=== PATIENT | male | born 1965 | race American Indian/Alaskan Native ===

== ENCOUNTER → 2018-06-28 | Day surgery (SDC) | payer OTHER ==
[~2018-06-28] MED LIST: Midazolam 1 MG/ML 2 ML SDV IV ONE; Midazolam 1 MG/ML 2 ML SDV ONE; Sodium Chloride 0.9% 10 ML Syringe FLUSH PRN; fentaNYL 100 MCG/2 ML SDV IV ONE; fentaNYL 100 MCG/2 ML SDV ONE
[2018-06-28] MEDS: fentaNYL 100 MCG/2 ML SDV IV ONE ×2 (06:30→06:31)
[2018-06-28] MEDS: Midazolam 1 MG/ML 2 ML SDV IV ONE ×3 (06:31→06:34)
[2018-06-28] MEDS: Dextrose 5%-0.45% NaCl 1,000 ML IV SCH (07:00)
[2018-06-28 09:51] VITALS: BP 104/69
--- NOTE | 2018-06-28 11:29 | OR ---
DATE: 06/28/2018 PROCEDURE PERFORMED: Total colonoscopy. INSTRUMENT USED: [id number] Olympus video colonoscope. PREMEDICATIONS: Fentanyl 100 mcg intravenous, Versed 2.5 mg intravenous. Nasal O2 cannula. The procedure was done under pulse oximetry, BP recording, and mattress filler. INDICATION: Screening colonoscopic examination is done for detection of any polypoid lesions and removal, endoscopic hemostasis therapy if needed. DESCRIPTION OF PROCEDURE: Initial rectal exam was unremarkable. Rigid anoscopy was normal. The colonoscope was passed with ease up to the ileocecal area. Photographs were taken of the normal-appearing cecum, identified by landmarks of appendiceal orifice and double-bulged ileocecal folds. No bleeding was noted from any of the visualized areas at the commencement of the examination. The bowel preparation was found to be adequate, [place] scale 3. No stricture. No vascular ectasia. No large isolated ulcerations seen. No evidence of diffuse inflammatory bowel disease in the form of friability, contact bleeding, or ulcerations. No polyp or tumor mass identified. Probing the proximal sides of folds and flexures using adequate distention and clearing up the stool material and withdrawal of the scope was made, cecum to rectum time, over 6 minutes. No bleeding was noted from any of the visualized areas at the completion of examination. IMPRESSION: Normal study. The patient tolerated the procedure well. [facility] /[id number]
--- NOTE | 2018-06-28 13:29 | LETTER ---
06/28/2018 Temitope Treviño MD [facility] [address] [place] [address] RE: AJAY NAVARRETE : [address] Treviño: Mr. Ajay Navarrete had colonoscopic examination done this morning and he tolerated the procedure well. I herewith send a copy of the endoscopy note and photographs for your review. Thank you. Sincerely, [facility] /[id number]
== END ==
LOC: DL.ENDO 05:24
PROVIDERS: ATTEND Internal Medicine Gastroenterology
DX: Z12.11 Encounter for screening for malignant neoplasm of colon (principal); I10 Essential (primary) hypertension; E11.9 Type 2 diabetes mellitus without complications; E78.5 Hyperlipidemia, unspecified; K21.9 Gastro-esophageal reflux disease without esophagitis; E66.09 Other obesity due to excess calories; Z68.37 Body mass index [BMI] 37.0-37.9, adult; Z88.0 Allergy status to penicillin; Z79.82 Long term (current) use of aspirin
CPT/HCPCS: J2250; J3010; J7042

== ENCOUNTER 2019-05-14 05:34 | Day surgery (SDC) | payer OTHER ==
[2019-05-14] MEDS ORDERED: fentaNYL 100 MCG/2 ML SDV IV ONE (05:35)
[2019-05-14] MEDS ORDERED: Midazolam 1 MG/ML 2 ML SDV IV ONE (05:35)
[2019-05-14] MEDS: Dextrose 5%-0.45% NaCl 1,000 ML IV SCH (05:56)
[2019-05-14] MEDS ORDERED: Sodium Chloride 0.9% 10 ML Syringe FLUSH PRN (06:00)
[2019-05-14] MEDS ORDERED: Midazolam 1 MG/ML 2 ML SDV ONE (06:12)
[2019-05-14] MEDS ORDERED: fentaNYL 100 MCG/2 ML SDV ONE (06:13)
[2019-05-14] MEDS: fentaNYL 100 MCG/2 ML SDV IV ONE ×2 (06:34→06:35)
[2019-05-14] MEDS: Midazolam 1 MG/ML 2 ML SDV IV ONE ×2 (06:35→06:36)
--- NOTE | 2019-05-14 07:41 | OR ---
DATE: 05/14/2019 PROCEDURE: Esophagogastroduodenoscopy and multiple pinch biopsies. INSTRUMENT USED: GIF-HQ190 Olympus video panendoscope. PREMEDICATIONS: No oral or topical anesthesia used. Fentanyl 100 mcg intravenous, Versed 2 mg intravenous. The procedure was done under pulse oximetry, BP recording, and shelter monitor. INDICATION: Diabetic patient on multiple medications with longstanding difficulties of heartburn and regurgitation, and dependent on PPI. Esophagogastroduodenoscopy is performed for detection of any active erosive lesions, Sahu esophagus and/or malignancy also under consideration, H. pylori status to be determined, endoscopic hemostasis therapy if needed. DESCRIPTION OF PROCEDURE: The scope was passed with ease. Adequate visualization of the esophagus was made from proximal to distal areas. No upper esophageal lesions identified. No distal esophageal stricture. No uphill or downhill esophageal varices. No Lisha-Brooks tear. No evidence of erosive esophagitis by [place] criteria. No esophageal polyp or tumor mass identified. Z-line was seen at around 39 cm distal to the oral verge, configuration consistent with grade 1 by ZAP classification. No proximal gastric varices noted. Gastric fundus examination by retroflexion showed no polypoid lesions. There was large amount of food material especially in the proximal stomach limiting visualization of few areas. No gastric ulcer, malignant mass, or vascular ectasia identified. Duodenal bulb showed no ulcer. Visualized second part of the duodenum was unremarkable. Multiple pinch biopsies were taken from the gastric antrum and proximal body and sent for PyloriTek test for H. pylori, and if negative in an hour, tissues to be sent for histopathology. No bleeding was noted from any of the visualized areas at the completion of the examination. Photographs were taken of the duodenal bulb, gastric antrum, fundus, and distal esophagus. IMPRESSION: Gastroparesis diabeticorum. The patient tolerated the procedure well. [facility] /[id number]
[2019-05-14 08:37] VITALS: PULSE 71
[2019-05-14 08:49] VITALS: BP 108/66
--- NOTE | 2019-05-14 13:57 | LETTER ---
05/14/2019 Temitope Treviño MD [facility] [address] [place] [address] RE: AJAY NAVARRETE : [address] Treviño: Mr. Ajay Navarrete had esophagogastroduodenoscopy done this morning and he tolerated the procedure well. I herewith send a copy of the endoscopy note and photographs for your review. Thank you. Sincerely, [facility] /[id number]
== END 2019-05-14 08:50 | disposition home or self-care (01) ==
LOC: DL.ENDO 05:34
PROVIDERS: ATTEND Internal Medicine Gastroenterology
DX: E11.43 Type 2 diabetes mellitus with diabetic autonomic (poly)neuropathy (principal); K31.84 Gastroparesis; B96.81 Helicobacter pylori [H. pylori] as the cause of diseases classified elsewhere; Z79.899 Other long term (current) drug therapy
CPT/HCPCS: 43239; 87077; J2250; J3010; J7042

== ENCOUNTER 2019-08-09 05:24 | Day surgery (SDC) | payer OTHER ==
[2019-08-09] MEDS ORDERED: fentaNYL 100 MCG/2 ML SDV IV ONE ×3 (05:25→06:27)
[2019-08-09] MEDS ORDERED: Midazolam 1 MG/ML 2 ML SDV IV ONE ×3 (05:25→06:28)
[2019-08-09] MEDS ORDERED: Dextrose 5%-0.45% NaCl 1,000 ML IV SCH (05:45)
[2019-08-09] MEDS ORDERED: Midazolam 1 MG/ML 2 ML SDV ONE (06:02)
[2019-08-09] MEDS ORDERED: fentaNYL 100 MCG/2 ML SDV ONE (06:02)
--- NOTE | 2019-08-09 07:33 | OR ---
DATE: 08/09/2019 PROCEDURE: Esophagogastroduodenoscopy. INSTRUMENT USED: GIF-HQ190 Olympus video panendoscope. PREMEDICATIONS: No oral or topical anesthesia used. Fentanyl 100 mcg intravenous, Versed 2 mg intravenous, nasal O2 cannula. The procedure was done under pulse oximetry, BP recording, and mouthpiece maker. INDICATION: The patient with longstanding difficulties of heartburn and diabetic on PPI with recent Hemoccult-positive stools. Previous inadequate study due to the presence of large amount of solid food in the stomach. Esophagogastroduodenoscopy is performed for detection of any active erosive lesions, malignancy also under consideration, endoscopic hemostasis therapy if needed. DESCRIPTION OF PROCEDURE: The scope was passed with ease. Adequate visualization of the esophagus was made from proximal to distal areas. No upper esophageal lesions identified. No distal esophageal stricture. No uphill or downhill esophageal varices. No Lisha-Brooks tear. No evidence of erosive esophagitis by [place] criteria. No esophageal polyp or tumor mass identified. Z-line was seen at around 40 cm distal to the oral verge, configuration consistent with grade 1 by ZAP classification. No proximal gastric varices noted. Gastric fundus examination by retroflexion showed no polypoid lesions. No gastric ulcer, malignant mass, or vascular ectasia identified. Duodenal bulb showed no ulcer. Visualized second part of the duodenum was unremarkable. No bleeding was noted from any of the visualized areas at the completion of examination. Photographs were taken of the duodenal bulb, gastric antrum, fundus, and distal esophagus. IMPRESSION: Normal study. The patient tolerated the procedure well. [facility] /[id number]
[2019-08-09 09:05] VITALS: PULSE 61
[2019-08-09 09:06] VITALS: BP 101/55
--- NOTE | 2019-08-09 10:30 | LETTER ---
08/09/2019 Constance De La Rosa NP [facility] [address] [place] [address] RE: AJAY NAVARRETE : Dear Ms. De La Rosa: Mr. Ajay Navarrete had esophagogastroduodenoscopy done this morning and he tolerated the procedure well. I herewith send a copy of the endoscopy note and photographs for your review. Thank you. Sincerely, [facility] /[id number]
== END 2019-08-09 08:39 | disposition home or self-care (01) ==
LOC: DL.ENDO 05:24
PROVIDERS: ATTEND Internal Medicine Gastroenterology
DX: R12 Heartburn (principal); R19.5 Other fecal abnormalities; E11.9 Type 2 diabetes mellitus without complications; E66.09 Other obesity due to excess calories; I10 Essential (primary) hypertension; E78.5 Hyperlipidemia, unspecified; K21.9 Gastro-esophageal reflux disease without esophagitis; Z88.0 Allergy status to penicillin; Z86.69 Personal history of other diseases of the nervous system and sense organs; Z86.19 Personal history of other infectious and parasitic diseases; Z79.899 Other long term (current) drug therapy; Z68.34 Body mass index [BMI] 34.0-34.9, adult
CPT/HCPCS: 43235; J2250; J3010; J7042

== ENCOUNTER 2019-08-13 05:22 | Day surgery (SDC) | payer OTHER ==
[2019-08-13] MEDS ORDERED: Midazolam 1 MG/ML 2 ML SDV IV ONE ×6 (05:23→06:41)
[2019-08-13] MEDS ORDERED: fentaNYL 100 MCG/2 ML SDV IV ONE ×3 (05:23→06:31)
[2019-08-13] MEDS: Dextrose 5%-0.45% NaCl 1,000 ML IV SCH ×2 (05:57→08:15)
[2019-08-13] MEDS ORDERED: Sodium Chloride 0.9% 10 ML Syringe FLUSH PRN (06:00)
[2019-08-13] MEDS ORDERED: Midazolam 1 MG/ML 2 ML SDV ONE (06:12)
[2019-08-13] MEDS ORDERED: fentaNYL 100 MCG/2 ML SDV ONE (06:12)
--- NOTE | 2019-08-13 08:13 | OR ---
DATE: 08/13/2019 PROCEDURE: Total colonoscopy. INSTRUMENT USED: [id number]-H190DL Olympus video colonoscope. PREMEDICATIONS: Fentanyl 100 mcg intravenous, Versed 3.5 mg intravenous, nasal O2 cannula. The procedure was done under pulse oximetry, BP recording, and monitoring manager. INDICATION: The patient with rectal bleeding and Hemoccult-positive stools. Colonoscopic examination is done for detection of any polypoid lesions and removal, endoscopic hemostasis therapy if needed. DESCRIPTION OF PROCEDURE: Initial rectal exam was unremarkable. Rigid anoscopy was normal. The colonoscope was passed with ease up to the ileocecal area. Photographs were taken of the normal-appearing cecum identified by landmarks of appendiceal orifice and double-bulged ileocecal folds. No bleeding was noted from any of the visualized areas at the commencement of the examination. The bowel preparation was found to be adequate, [place] scale 3 in all the regions, total score 9. No stricture. No vascular ectasia. No large isolated ulceration. There was no evidence of diffuse inflammatory bowel disease in the form of friability, contact bleeding, or ulcerations. No polyp or tumor mass identified. Probing the proximal sides of folds and flexures using adequate distention and clearing up the stool material, withdrawal of the scope was made. Cecum to rectum time over 6 minutes. No bleeding was noted from any of the visualized areas at the completion of examination. IMPRESSION: Normal study. The patient tolerated the procedure well. [facility] /[id number]
--- NOTE | 2019-08-13 08:49 | LETTER ---
08/13/2019 Constance De La Rosa NP [address] [place] [address] RE: AJAY BAILON : 1965 Dear Ms. De La Rosa: Ms. Ajay Figueroa Jerriaurora had colonoscopic examination done this morning and he tolerated the procedure well. I herewith send a copy of the endoscopy note and photographs for your review. Thank you. Sincerely, [facility] /[id number]
[2019-08-13 09:23] VITALS: BP 112/63; PULSE 60
== END 2019-08-13 08:50 | disposition home or self-care (01) ==
LOC: DL.ENDO 05:22
PROVIDERS: ATTEND Internal Medicine Gastroenterology
DX: K62.5 Hemorrhage of anus and rectum (principal); R19.5 Other fecal abnormalities; E66.09 Other obesity due to excess calories; I10 Essential (primary) hypertension; E78.5 Hyperlipidemia, unspecified; E11.9 Type 2 diabetes mellitus without complications; K21.9 Gastro-esophageal reflux disease without esophagitis; Z88.0 Allergy status to penicillin; Z86.19 Personal history of other infectious and parasitic diseases; Z86.69 Personal history of other diseases of the nervous system and sense organs; Z68.34 Body mass index [BMI] 34.0-34.9, adult
CPT/HCPCS: 45378; J2250; J3010; J7042; G0121

== ENCOUNTER 2022-03-11 20:19 | Emergency (ER) | payer OTHER ==
[2022-03-11] MEDS ORDERED: Benzonatate 100 MG Cap PO ONE (20:20)
[2022-03-11 20:43] VITALS: BP 150/88; PULSE 97
[2022-03-11 21:12] LABS: CORONAVIRUS COVID-19 NAA NEGATIVE (NEGATIVE); RESPIRATORY SYNCYTIAL VIR NAA NEGATIVE (NEGATIVE)
[2022-03-11] MEDS ORDERED: Benzonatate 100 MG Cap ONE (22:44)
== END 2022-03-11 22:48 | disposition home or self-care (01) ==
LOC: DL.ED 20:19
DX: S90.31XA Contusion of right foot, initial encounter (principal); R05.9 Cough, unspecified; E78.00 Pure hypercholesterolemia, unspecified; I10 Essential (primary) hypertension; E11.9 Type 2 diabetes mellitus without complications; E66.9 Obesity, unspecified; Z68.34 Body mass index [BMI] 34.0-34.9, adult; Z88.0 Allergy status to penicillin; W20.8XXA Other cause of strike by thrown, projected or falling object, initial encounter
CPT/HCPCS: 0241U; 73620-RT; 99283; A9270-GY